=== PATIENT | female | born 1995 | race Caucasian/White ===

== ENCOUNTER 2021-11-14 15:40 | Outpatient (CLI) | payer OTHER, SELFPAY ==
--- NOTE | ~2021-11-14 | US_ITS ---
EXAMINATION: US OB <= 14 weeks fetus DATE: 11/14/2021 16:17 INDICATION: Bleeding. TECHNIQUE: Real-time transabdominal and transvaginal obstetric ultrasound. FINDINGS: No prior studies for comparison. The uterus measures 18.4 x 10 x 6 cm. There is an intrauterine gestational sac, with pole ident ified. The crown rump length measures 5.4 cm, which correlates with a estimated gestational age of 1 2 weeks 0 days. heart tones are identified measuring 155 BPM. There is a small subchorionic h emorrhage measuring 7 x 6 x 2 mm. IMPRESSION: 1. SL IUP with an EGA of 12 weeks, 0 days (EDC by current ultrasound of 05/29/2022). 2: Small subchorionic hemorrhage. Reviewed, dictated and finalized at location B. IMPRESSION: 1. SL IUP with an EGA of 12 weeks, 0 days (EDC by current ultrasound of 022). 2: Small subchorionic hemorrhage.
== END 2021-11-14 15:41 | disposition home or self-care (01) ==
LOC: ANHIMG 15:42
PROVIDERS: Visit Provider Obstetrics & Gynecology
DX: O20.9 Hemorrhage in early pregnancy, unspecified (principal); Z3A.12 12 weeks gestation of pregnancy
CPT/HCPCS: 76801